=== PATIENT | female | born 1960 | race Caucasian/White ===

== ENCOUNTER 2019-06-15 12:45 | Outpatient (CLI) | payer BC ==
[~2019-06-15 12:45] MED LIST: Iopamidol 370 76% 100 ML VIAL ONE
--- NOTE | 2019-06-15 14:09 | CT ---
CT ABDOMEN AND PELVIS WITH CONTRAST: HISTORY: Pain. COMPARISON: None. FINDINGS: Lung bases are clear. No pericardial effusion. Liver and gallbladder are normal as well as the sple en and pancreas. There are small masses of both adrenal glands, larger on the left measuring up to 2.2 cm and the one on the right measuring up to 1.1 cm. Aortic contour is nonaneurysmal. There are no dilated loops of large or small bowel. The appendix is visualized and is normal. There are small hypodensities along both adnexa, subcentim eter. No free intraperitoneal gas or fluid. No osseous abnormality. No suspicious osteolytic or osteoblas tic lesions. No hydronephrosis. No intrahepatic or extrahepatic biliary dilatation. The splenic vein and portal veins are patent. Celiac trunk and superior mesenteric arteries are patent. IMPRESSION: 1. No acute inflammatory process of the abdomen and pelvis. 2. Bilateral relatively small adrenal masses. The adrenal protocol CT to evaluate for washout is re commended nonemergently. 3. Normal appendix. 4. Although this is somewhat limited, no nephrolithiasis is appreciated. No hydroureteronephrosis. POS: [facility]
== END 2019-06-15 12:46 | disposition home or self-care (01) ==
LOC: BICCT 12:45
PROVIDERS: ATTEND Physician Assistant
DX: R30.0 Dysuria (principal); E27.8 Other specified disorders of adrenal gland
CPT/HCPCS: 74177

== ENCOUNTER 2019-07-12 08:41 | Outpatient (CLI) | payer BC ==
[2019-07-12] MEDS ORDERED: Iopamidol-370 76% 500 ML 1 ML ONE (09:49)
--- NOTE | 2019-07-12 11:01 | CT ---
EXAM: CT Abdomen W WO Con PROVIDED CLINICAL HISTORY: Bilateral adrenal masses. COMPARISON: 06/15/2019 FINDINGS: As noted on the prior exam, there are bilateral adrenal masses with right adrenal mass measuring 1.6 cm and left adrenal mass measuring 2.3 cm. These adrenal lesions demonstrate attenuation coefficients compatible with adrenal adenomas based on precontrast images as well as the absolute and relative washout characteristics. Subcentimeter too small to characterize hypodense lesion right hepatic lobe is again seen. The spleen, pancreas, and kidneys as well as opacified small bowel demonstrate a normal CT appearance . Vascular calcifications are seen in the abdominal aorta and iliac arteries. Small fat-containing umbilical hernia is present. Minimal atelectasis is present at each lung base. No other interval change. IMPRESSION: 1. Bilateral adrenal adenomas. 2. Too small to characterize hepatic lobe hypodense lesion.
== END 2019-07-12 08:42 | disposition home or self-care (01) ==
LOC: BICCT 08:41
PROVIDERS: ATTEND Physician Assistant
DX: E27.8 Other specified disorders of adrenal gland (principal); R30.0 Dysuria; D35.02 Benign neoplasm of left adrenal gland; D35.01 Benign neoplasm of right adrenal gland; K76.9 Liver disease, unspecified
CPT/HCPCS: 74170; Q9967

== ENCOUNTER 2021-04-03 12:00 | Outpatient (CLI) | payer BC | END 2021-04-03 12:01 | disposition home or self-care (01) | LOC: BICMAMMO 12:00 | PROVIDERS: ATTEND Physician Assistant | DX: Z12.31 Encounter for screening mammogram for malignant neoplasm of breast (principal) | CPT/HCPCS: 77063; 77067 ==